=== PATIENT | female | born 1995 | race Caucasian/White ===

== ENCOUNTER 2016-10-25 10:24 | Day surgery (SDC) | payer BC, OTHER ==
[2016-10-24 13:12] VITALS: BMI 23.4
[2016-10-25 10:59] LABS: BASOPHIL 0.8 % (0-2.0); EOSINOPHIL 0.7 % (0-4.5); MCH 27.8 pg (25.7-33.7); MCHC 33.8 g/dl (32.0-36.0); MEAN CELL VOLUME 82.4 fl (80-96); MEAN PLT VOLUME 10.1 fl (7.5-11.1); NEUTROPHILS 71.6 % (42.8-82.8); PLATELET COUNT 239 K/MM3 (134-434); RDW 14.8 % (11.6-15.6); WHITE BLOOD COUNT 6.5 K/mm3 (4.0-10.0)
[2016-10-25 11:27] LABS: ALBUMIN 3.9 g/dl (3.4-5.0); ALK PHOS 59 U/L (45-117); BILIRUBIN,TOTAL 0.3 mg/dL (0.2-1.0); CALCIUM 9.2 mg/dL (8.5-10.1); CO2 27 mmol/L (21-32); CREATININE 0.5 mg/dL (0.55-1.02); GLUCOSE,RANDOM 102 mg/dL (74-106); SGOT/AST 13 U/L (15-37); SGPT/ALT 17 U/L (12-78); TOT PROT 7.5 g/dl (6.4-8.2)
[2016-10-25 12:17] LABS: ANION GAP 9 (8-16)
--- NOTE | 2016-10-25 12:49 | HP ---
History & Physical Update - History History: No Change - Physical Physical: No Change - Assessment Assessment: No Change - Plan Plan: No Change
[2016-10-25] MEDS ORDERED: PROPOFOL 20 ML ONE ×2 (12:51)
[2016-10-25] MEDS ORDERED: KETOROLAC TROMETHAMINE 30 MG/1 ML VIAL ONE (13:02)
[2016-10-25] MEDS ORDERED: ONDANSETRON 4 MG/2 ML VIAL IVPUSH PRN (13:15)
[2016-10-25] MEDS ORDERED: oxyCODONE HCL 5 MG TABLET PO PRN (13:15)
[2016-10-25] MEDS ORDERED: ACETAMINOPHEN 325 MG TABLET (FP) PO PRN (13:15)
[2016-10-25] MEDS ORDERED: LACTATED RINGERS SOLUTION 1,000 ML IV SCH (13:15)
--- NOTE | 2016-10-25 13:22 | OP ---
Operative Note - Note: Operative Date: 10/25/16 Pre-Operative Diagnosis: Missed Post-Operative Diagnosis: Same as Pre-op Surgeon: Poly Cedeno Anesthesia: General Operative Report Dictated: Yes
--- NOTE | 2016-10-25 13:40 | OP ---
DATE OF OPERATION: 10/25/2016 PREOPERATIVE DIAGNOSIS: Missed . OPERATION: Suction dilatation and curettage. POSTOPERATIVE DIAGNOSIS: Missed . SURGEON: Poly Cedeno MD ANESTHESIA: General. ESTIMATED BLOOD LOSS: 30 mL. DESCRIPTION OF PROCEDURE: Patient was taken to the operating room and placed in dorsal lithotomy position, prepped and draped in the usual sterile fashion. Speculum was placed in the vagina. Anterior lip of the cervix was grasped with a single-tooth tenaculum. Cervix then dilated to accommodate number-8 suction curette. Suction curettage was then performed. All contents were submitted to Pathology for chromosomal analysis. All instruments were then removed. Patient had tolerated the procedure well and was taken to the recovery room in stable condition. The estimated blood loss 30 mL. POLY CEDENO M.D. [id number]
[2016-10-25 14:41] VITALS: TEMP 98.8
[2016-10-25 17:25] VITALS: BP 124/60; PULSE 75
--- NOTE | 2016-10-26 13:35 | PATH ---
Surgical Pathology Report Patient Name: GENESIS MORRISSEY Med. Rec. #: [id number] /Age/Gender: 1995 (Age: 21) / F Account: [id number] Location: [facility] SURGICAL Taken: 10/25/2016 Received: 10/25/2016 Reported: 10/26/2016 Physicians: Poly Cedeno M.D. Specimen(s) Received PRODUCTS OF CONCEPTION Clinical History Missed Final Diagnosis UTERINE CONTENTS, EVACUATION: CHORIONIC VILLI CONSISTENT WITH PRODUCTS OF CONCEPTION. Comment: Chromosome analysis is pending, and a report will follow. Electronically Signed Darell Corral M.D. Gross Description Received fresh labeled "products of conception for chromosomal studies," is a 9.0 x 8.0 x 1.2 cm aggregate of banks-red soft tissue fragments admixed with blood clot. Villous tissue is identified. No definite somatic tissue is identified. A containers sales representative portion is placed in RPMI solution and sent for chromosomal analysis. An additional containers sales representative portion is submitted in one cassette. /10/25/2016 [facility]10/25/2016
== END 2016-10-25 17:00 | disposition home or self-care (01) ==
LOC: JASU-SURG 10:24
PROVIDERS: ATTEND Obstetrics & Gynecology
PROC: 10D17ZZ Extraction of Products of Conception, Retained, Via Natural or Artificial Opening (ICD-10-PCS; principal; 2016-10-25 11:30)
DX: O02.1 Missed abortion (principal)
CPT/HCPCS: 36415; 80053; 85025; 86850; 86870; 86900; 86901; 86902; 88305-TC; 94760

== ENCOUNTER 2017-10-29 16:10 | Inpatient (IN) | payer BC, OTHER ==
[2017-10-29] MEDS ORDERED: LACTATED RINGERS SOLUTION 500 ML IV SCH (16:45)
[2017-10-29] MEDS ORDERED: DEXTROSE 5%-LACTATED RINGERS 500 ML IV SCH (17:45)
[2017-10-29] MEDS ORDERED: ACETAMINOPHEN 325 MG TABLET (FP) ONE (19:05)
[2017-10-29] MEDS ORDERED: AMPICILLIN SODIUM 2 GM VIAL ONE (19:05)
[2017-10-29] MEDS ORDERED: AMPICILLIN - 2 GM in SODIUM CHLORIDE 100 ML IVPB ONE ×2 (19:15→22:15)
[2017-10-29] MEDS ORDERED: ACETAMINOPHEN 325 MG TABLET (FP) PO ONE (19:30)
[2017-10-29] MEDS ORDERED: DEXTROSE 5%-LACTATED RINGERS 1,000 ML IV SCH (19:45)
[2017-10-29 20:25] LABS: BASO % 0.3 % (0-2.0); EOS % 0.4 % (0-4.5); HEMATOCRIT 36.9 % (32.4-45.2); LYMPH % 18.6 % (8-40); MCH 26.1 pg (25.7-33.7); MCHC 32.6 g/dl (32.0-36.0); MEAN CELL VOLUME 80.1 fl (80-96); MEAN PLT VOLUME 11.6 fl (7.5-11.1); NEUT % 72.7 % (42.8-82.8); PLATELET COUNT 227 K/MM3 (134-434); RBC 4.61 M/mm3 (3.60-5.2); RDW 16.1 % (11.6-15.6); WHITE BLOOD COUNT 10.3 K/mm3 (4.0-10.0)
[2017-10-29 20:26] LABS: URINE APPEARANCE CLEAR; URINE BILIRUBIN NEGATIVE (<2.0 mg/dL); URINE COLOR STRAW; URINE GLUCOSE (UA) NEGATIVE (NEGATIVE); URINE KETONE NEGATIVE (NEGATIVE); URINE LEUK ESTERASE NEGATIVE (NEGATIVE); URINE NITRITE NEGATIVE (NEGATIVE); URINE PROTEIN NEGATIVE (NEGATIVE); URINE UROBILINOGEN NEGATIVE mg/dL (0.2-1.0)
[2017-10-29 21:18] LABS: ALBUMIN 2.9 g/dl (3.4-5.0); ALK PHOS 180 U/L (45-117); ANION GAP 12 (8-16); BILIRUBIN,TOTAL 0.3 mg/dL (0.2-1.0); BLOOD UREA NITROGEN 8 mg/dL (7-18); CALCIUM 9.2 mg/dL (8.5-10.1); CHLORIDE 103 mmol/L (98-107); CO2 24 mmol/L (21-32); CREATININE 0.4 mg/dL (0.55-1.02); GLUCOSE,RANDOM 65 mg/dL (74-106); POTASSIUM 4.1 mmol/L (3.5-5.1); SGOT/AST 18 U/L (15-37); SGPT/ALT 15 U/L (12-78); SODIUM 139 mmol/L (136-145); TOT PROT 6.7 g/dl (6.4-8.2)
[2017-10-29] MEDS ORDERED: MAGNESIUM 4GM/H20 - 4 GM/100 ML IVPB IVPB ONE (22:07)
[2017-10-29] MEDS ORDERED: MAGNESIUM SULFATE 20GM/500ML - 20 GM/500 ML INFUS.BAG ONE (22:07)
--- NOTE | 2017-10-29 22:08 | HP ---
Past Medical History - Primary Care Physician PCP:: Poly Cedeno - Admission Chief Complaint: labor 35.6 week. Breech Delivery History of Present Illness: 22 yo EDC 11/27/17 EgA 35 week with labor with breech presentation History Source: Patient Limitations to Obtaining History: No Limitations - Past Medical History ...: 3 ...Para: 0 ...Term: 0 ...: 0 ...Spon : 1 ...Induced : 1 ...LMP: 02/20/17 ... Weeks Gestation by Dates: 35.6 ...EDC by Dates: 11/27/17 ...EDC by Sono: 11/27/17 - Past Surgical History Past Surgical History: Yes: None Hx Myomectomy: No Hx Transabdominal Cerclage: No - Smoking History Smoking history: Never smoked Aproximately how many cigarettes per day: 0 - Alcohol/Substance Use Hx Alcohol Use: No Home Medications - Allergies Allergies/Adverse Reactions: Allergies Allergy/AdvReac Type Severity Reaction Status Date / Time benzoyl peroxide Allergy Severe "FACE Verified 10/29/17 16:39 SWELLING,ITCHY" clindamycin Allergy "FACE Verified 10/25/16 11:07 SWELLING, ITCHY" - Home Medications Home Medications: Ambulatory Orders Vit/Iron Fum/Folic AC [ Tablet] 1 each PO DAILY 10/24/16 Physical Exam - Maternity Vital Signs: Vital Signs Temperature 98.4 F 10/29/17 19:58 Pulse Rate 65 10/29/17 19:58 Respiratory Rate 19 10/29/17 19:58 Blood Pressure 132/77 10/29/17 19:58 O2 Sat by Pulse Oximetry (%) Constitutional: Yes: Well Nourished, No Distress Neck: Yes: WNL Cardiovascular: Yes: WNL, Regular Rate and Rhythm Lungs: Clear to auscultation Breast(s): Yes: WNL - Abdominal Exam/OB Fundal Height: 35 Number of Fetuses: Single Presentation: Vertex Contractions: Yes Regularity: Regular Intensity: Mild Monitor Mode: External Category: I Decelerations: None - Vaginal Exam/OB Dilatation (cm): closed Effacement (%): 50 % Amniotic Membrane Status: Intact Presentation: Vertex/Position Station: -2 - Physical Exam Musculoskeletal: Yes: WNL Extremities: Yes: WNL Edema: No - Labs Lab Results: CBC, BMP 10/29/17 19:30 10/29/17 19:30 Hemorrhage Risk Assessment - Risk Factors Risk Score: 0 Risk Level: Low Risk Problem List - Problems (1) labor in third trimester Code(s): O60.03 - LABOR WITHOUT DELIVERY, THIRD TRIMESTER (2) 35 weeks gestation of Code(s): Z3A.35 - 35 WEEKS GESTATION OF Assessment/Plan labor 35 week Breech presentation Plan Admit to LD Amp 2 gm MgSo4 4 gm bolus the 2gm/hr x 24 hours
[2017-10-29] MEDS ORDERED: MAGNESIUM 4GM/H20 - 4 GM/100 ML IVPB IVPB SCH (22:15)
[2017-10-29] MEDS ORDERED: ELECTROLYTE-148 SOLN 1,000 ML IV SCH (22:15)
[2017-10-29 23:10] LABS: INR 0.95 (0.82-1.09); PROTHROMBIN TIME (PATIENT) 10.7 SEC (9.7-13.0)
[2017-10-29 23:13] LABS: ACTIVATED PTT 24.6 SECONDS (25.2-36.5)
[2017-10-29] MEDS ORDERED: MAGNESIUM SULFATE 20GM/500ML - 20 GM/500 ML INFUS.BAG IVPB SCH (23:20)
[2017-10-29] MEDS ORDERED: LACTATED RINGERS SOLUTION 1,000 ML IV SCH (23:20)
[2017-10-29] MEDS: LACTATED RINGERS SOLUTION 1,000 ML IV SCH (23:20)
[2017-10-29] MEDS ORDERED: SODIUM CHLORIDE 1,000 ML IV SCH (23:20)
[2017-10-30 01:44] VITALS: BMI 27.0
[2017-10-30] MEDS ORDERED: AMPICILLIN SODIUM 1 GM VIAL ONE ×4 (04:08→21:59)
[2017-10-30] MEDS: AMPICILLIN - 1 GM in SODIUM CHLORIDE 100 ML IVPB SCH ×4 (04:15→22:03)
[2017-10-30] MEDS ORDERED: AMPICILLIN - 1 GM in SODIUM CHLORIDE 100 ML IVPB SCH (04:15)
[2017-10-30] MEDS: LACTATED RINGERS SOLUTION 1,000 ML IV SCH (06:25)
--- NOTE | 2017-10-30 07:57 | PN ---
Progress Note (SOAP) - Subjective Chief Complaint: Pt doing well - Current Medications Current Medications: Active Medications Sodium Chloride (Normal Saline -) 1,000 mls @ 25 mls/hr IV ASDIR NISSA Last Admin: 10/29/17 22:40 Dose: 25 mls/hr Lactated Ringer's (Lactated Ringers Solution) 1,000 mls @ 75 mls/hr IV ASDIR NISSA Last Admin: 10/30/17 06:25 Dose: 75 mls/hr Magnesium Sulfate (Magnesium Sulfate 20gm/500ml -) 20 gm in 500 mls @ 25 mls/ hr IVPB ASDIR NISSA; Protocol Last Admin: 10/29/17 23:20 Dose: 25 mls/hr Ampicillin Sodium 1 gm/ Sodium (Chloride) 100 mls @ 200 mls/hr IVPB Q6H [facility] Last Admin: 10/30/17 04:15 Dose: 200 mls/hr - Objective Vital Signs: Vital Signs Temperature 97.8 F 10/30/17 06:00 Pulse Rate 79 10/30/17 07:00 Respiratory Rate 20 10/30/17 07:00 Blood Pressure 118/68 10/30/17 07:00 O2 Sat by Pulse Oximetry (%) Constitutional: Yes: Well Nourished, No Distress Neck: Yes: WNL Cardiovascular: Yes: WNL, Regular Rate and Rhythm Respiratory: Yes: WNL Gastrointestinal: Yes: WNL, Normal Bowel Sounds, Soft Breast(s): Yes: WNL Musculoskeletal: Yes: WNL Extremities: Yes: WNL Edema: No Neurological: Yes: WNL, Alert, Oriented Labs Lab Results: CBC, BMP 10/29/17 19:30 10/29/17 19:30 Problem List - Problems (1) labor in third trimester Code(s): O60.03 - LABOR WITHOUT DELIVERY, THIRD TRIMESTER (2) 35 weeks gestation of Code(s): Z3A.35 - 35 WEEKS GESTATION OF Assessment/Plan labor 36 week Breech presentation Plan DC MgSO4 Transfer to when stable
[2017-10-30] MEDS ORDERED: BETAMET ACET/BETAMET NA PH 30 MG/5 ML VIAL ONE (08:35)
[2017-10-30] MEDS: BETAMET ACET/BETAMET NA PH 30 MG/5 ML VIAL IM SCH (08:45)
[2017-10-30] MEDS: PRENATAL VITAMINS W/ FOLIC ACID TABLET (FP) PO SCH (11:25)
[2017-10-30] MEDS ORDERED: SODIUM CHLORIDE 100 ML IVPB ONE ×2 (16:31→21:59)
[2017-10-31] MEDS ORDERED: SODIUM CHLORIDE 100 ML IVPB ONE (02:17)
[2017-10-31] MEDS ORDERED: AMPICILLIN SODIUM 1 GM VIAL ONE (02:17)
[2017-10-31] MEDS: AMPICILLIN - 1 GM in SODIUM CHLORIDE 100 ML IVPB SCH (03:45)
[2017-10-31] MEDS: BETAMET ACET/BETAMET NA PH 30 MG/5 ML VIAL IM SCH (08:55)
[2017-10-31] MEDS: PRENATAL VITAMINS W/ FOLIC ACID TABLET (FP) PO SCH (09:02)
[2017-10-31 14:26] VITALS: BP 120/61; PULSE 78; TEMP 98.2
== END 2017-10-31 15:55 | disposition home or self-care (01) | DRG 778 ==
LOC: JDEL 16:10 → JLDR 22:00 → J3W 10-30 10:30
PROVIDERS: ADMIT Obstetrics & Gynecology; ATTEND Obstetrics & Gynecology
DX: O60.03 Preterm labor without delivery, third trimester (principal); O32.1XX0 Maternal care for breech presentation, not applicable or unspecified; Z3A.35 35 weeks gestation of pregnancy
CPT/HCPCS: 36415; 80053; 81003; 83735; 85025; 85610; 85730; 86593; 86850; 86870; 86900; 86901; 86902; 87086; 96372; J7030

== ENCOUNTER 2017-11-20 08:00 | Inpatient (IN) | payer BC, OTHER ==
[2017-11-20] MEDS ORDERED: ELECTROLYTE-148 SOLN 1,000 ML IV ONE (10:15)
[2017-11-20] MEDS ORDERED: CITRIC ACID/SODIUM CITRATE 30 ML UNIT-DOSE CUP PO ONE (10:15)
[2017-11-20 10:50] VITALS: BMI 28.1
--- NOTE | 2017-11-20 11:06 | HP ---
Past Medical History - Admission Chief Complaint: Here for delivery History of Present Illness: 22 y/o P0 female here with [facility] at 39 weeks for scheduled delivery due to breech presentation. complicated by premature contractions at 36 weeks, pt received betamethasone. Also complicated by breech presentation. - Past Medical History Cardiovascular: No: AFIB, HTN Pulmonary: No: COPD Gastrointestinal: No: GERD Hepatobiliary: No: Hepatitis A, Hepatitis B Renal/: No: Renal Calculi, UTI ...: 3 ...Para: 0 ...Term: 0 ...: 0 ...Spon : 1 ...Induced : 1 ...Multiple Gestation: 0 ...LMP: 02/20/17 ... Weeks Gestation by Dates: 39.0 ...EDC by Dates: 11/27/17 ...EDC by Sono: 11/27/17 Heme/Onc: No: Anemia Infectious Disease: No: HIV, MRSA, STD's Psych: No: Anxiety, Bipolar, Depression - Past Surgical History Past Surgical History: Yes: None Hx Myomectomy: No Hx Transabdominal Cerclage: No - Smoking History Smoking history: Never smoked Have you smoked in the past 12 months: No Aproximately how many cigarettes per day: 0 - Alcohol/Substance Use Hx Alcohol Use: No - Social History ADL: Independent History of Recent Travel: No Home Medications - Allergies Allergies/Adverse Reactions: Allergies Allergy/AdvReac Type Severity Reaction Status Date / Time benzoyl peroxide Allergy Severe "FACE Verified 11/20/17 10:28 SWELLING,ITCHY" clindamycin Allergy "FACE Verified 11/20/17 10:28 SWELLING, ITCHY" - Home Medications Home Medications: Ambulatory Orders Vit/Iron Fum/Folic AC [ Tablet] 1 each PO DAILY 10/24/16 Review of Systems - Review of Systems Constitutional: reports: No Symptoms Eyes: reports: No Symptoms HENT: reports: No Symptoms Neck: reports: No Symptoms Cardiovascular: reports: No Symptoms Respiratory: reports: No Symptoms Gastrointestinal: reports: No Symptoms Genitourinary: reports: No Symptoms Breasts: reports: No Symptoms Reported Musculoskeletal: reports: No Symptoms Integumentary: reports: No Symptoms Neurological: reports: No Symptoms Endocrine: reports: No Symptoms Hematology/Lymphatic: reports: No Symptoms Psychiatric: reports: No Symptoms Physical Exam - Maternity Constitutional: Yes: Well Nourished, No Distress, Calm Eyes: Yes: Conjunctiva Clear, EOM Intact HENT: Yes: Atraumatic, Normocephalic Neck: Yes: Supple, Trachea Midline Lungs: Clear to auscultation - Abdominal Exam/OB Number of Fetuses: Single Presentation: Breech Category: I Accelerations: Uniform Decelerations: None - Vaginal Exam/OB Amniotic Membrane Status: Intact - Physical Exam Psychiatric: Yes: Alert, Oriented Hemorrhage Risk Assessment - Risk Factors Medium Risk Factors: Yes: None High Risk Factors: Yes: None Risk Score: 1 Risk Level: Medium Risk Problem List - Problems (1) Breech presentation of fetus Code(s): O32.1XX0 - MATERNAL CARE FOR BREECH PRESENTATION, UNSP Assessment/Plan for primary delivery NPO SCDs anesthesia and nursery aware
[2017-11-20] MEDS ORDERED: DEXTROSE 5%-LACTATED RINGERS 1,000 ML IV SCH (11:15)
[2017-11-20] MEDS ORDERED: ELECTROLYTE-148 SOLN 1,000 ML IV SCH (11:15)
[2017-11-20 11:33] LABS: INR 0.93 (0.82-1.09); PROTHROMBIN TIME (PATIENT) 10.5 SEC (9.7-13.0)
[2017-11-20 11:36] LABS: ACTIVATED PTT 25.3 SECONDS (25.2-36.5)
[2017-11-20] MEDS ORDERED: METHYLERGONOVINE MALEATE 0.2 MG/1 ML AMP IM PRN (12:20)
[2017-11-20] MEDS ORDERED: oxyCODONE HCL 5 MG TABLET PO PRN (12:20)
[2017-11-20] MEDS ORDERED: OXYTOCIN 20 UNITS in 0.9% NS 20 UNIT/1,000 ML INFUS.BAG IV ONE ×2 (12:23→13:50)
[2017-11-20] MEDS ORDERED: morphine SULFATE/Preservative Free 0.5 MG/ML (1cc Syringe) ONE (12:24)
[2017-11-20] MEDS ORDERED: ePHEDrine SULFATE 50 MG/1 ML AMPULE ONE (12:24)
[2017-11-20] MEDS ORDERED: BUPIVACAINE 0.75% IN DEXTROSE/PF 2ML AMPULE NR ONE (12:27)
[2017-11-20] MEDS ORDERED: ceFAZolin SODIUM 1 GM VIAL ONE (12:58)
--- NOTE | 2017-11-20 13:28 | OP ---
Operative Note - Note: Operative Date: 11/20/17 Pre-Operative Diagnosis: albina breech presentation Operation: primary delivery Findings: normal b/l tubes and ovaries albina breech presentation of fetus Surgeon: Ivory Ramirez Rack Carrier: Summer Alcantara Anesthesiologist/TELECOMMUNICATIONS PROJECT MANAGER: Brenda Gillis Anesthesia: Spinal Specimens Removed: placenta Estimated Blood Loss (mls): 500 Operative Report Dictated: Yes
[2017-11-20] MEDS: OXYTOCIN 20 UNITS in 0.9% NS 20 UNIT/1,000 ML INFUS.BAG IV SCH (13:50)
[2017-11-20] MEDS ORDERED: ONDANSETRON 4 MG/2 ML VIAL IVPUSH PRN (13:53)
--- NOTE | 2017-11-20 13:55 | OP ---
DATE OF OPERATION: 11/20/2017 PREOPERATIVE DIAGNOSIS: Albina breech presentation single intrauterine at 39 weeks. POSTOPERATIVE DIAGNOSIS: Albina breech presentation single intrauterine at 39 weeks. PROCEDURE: Primary low transverse delivery. SURGEON: Ivory Ramirez DO WINE SPECIALIST: SRUTHI Jacobson ESTIMATED BLOOD LOSS: 500 mL. ANESTHESIA: Spinal by Dr. Gillis COMPLICATIONS: None. SPECIMENS REMOVED: Placenta. Sponge, needle, and instrument count correct at the end of the case. DISPOSITION: Stable to PACU. BRIEF HISTORY AND PROCEDURE: The patient is a 22-year-old female who had been seen in the office for care and was noted to have albina breech presentation. The patient was counseled on her options, and she elected to undergo a primary delivery. The patient signed consents for the procedure upon admission on November 20, 2017. She was then taken back to the operating room and placed in the dorsal supine position after given spinal anesthesia by Dr. Gillis without difficulty. She was prepped and draped in the usual sterile fashion. A Angulo catheter was placed under sterile conditions. A hard time-out was then performed. A Pfannenstiel skin incision was created in the skin with a scalpel and carried to the underlying layer of rectus fascia sharply as well as bluntly. The fascia was incised on either side of the midline sharply and carried in a superolateral direction sharply. The fascia was then dissected off the underlying layer of rectus muscles bluntly and musculature was retracted laterally, and the peritoneum was entered bluntly and carefully dissected to allow for adequate room for delivery. A bladder blade was then inserted. Next, a low transverse incision on the uterus with created with a clean scalpel. This incision was extended in a superolateral direction bluntly. The was delivered from the albina breech presentation without difficulty. First the hips were elevated, and with minimal pressure from above, the hips and lower extremities were delivered without difficulty. Bilateral arms then delivered in an anterior sleeping flexed fashion bilaterally without difficulty, and the head was delivered in a flexed position. The cord was clamped twice and cut in between. The infant was then taken to the warmer to be assessed by Neonatology staff where scores were assigned. Placenta was noted to have a 3-vessel cord. This was delivered manually, and it was intact. The uterus was exteriorized from the abdomen, inspected, and cleared of all amniotic membrane and debris with a dry lap sponge. The hysterotomy was reapproximated in a double-layer closure using 1 Vicryl first, second with a 0 Biosyn suture both running, locked layers. Bilateral tubes and ovaries were noted to be normal. The posterior cul-de-sac was suctioned and cleared of all blood clot and debris. The uterus was placed back in the abdomen. Bilateral gutters were inspected and cleared of all amniotic membrane and debris. The peritoneum was reapproximated using 2-0 chromic in a running fashion. The musculature was reapproximated with a single mattress suture using 2-0 chromic suture. The fascia was reapproximated using 1 Vicryl in a running fashion. The subcutaneous tissue was irrigated and reapproximated in a running fashion, and the skin was reapproximated in a subcuticular fashion. Steri-Strips were then applied. The patient tolerated the procedure well and is recovering in stable condition in the labor and delivery recovery area after the procedure. IVORY RAMIREZ DO /[id number]
--- NOTE | 2017-11-20 15:52 | SURG ---
Surgery Press Operator [employer] Note Press Operator [employer]: Summer Alcantara PA-C Date of Service: 11/20/17 Diagnosis: albina breech presentation Procedure: primary delivery I was present for the entirety of the operative procedure. For further detail, please refer to operative report. Visit type - Case Type Case Type: Scheduled - Emergency Emergency Visit: No - New patient This patient is new to me today: Yes Date on this admission: 11/20/17
[2017-11-20] MEDS: IBUPROFEN 800 MG/8 ML IJ IVPB PRN (18:35)
[2017-11-21] MEDS: IBUPROFEN 800 MG/8 ML IJ IVPB PRN (04:05)
[2017-11-21] MEDS: OXYTOCIN 20 UNITS in 0.9% NS 20 UNIT/1,000 ML INFUS.BAG IV SCH (06:04)
--- NOTE | 2017-11-21 06:17 | PN ---
Post Progress Note - Subjective Subjective: Pt seen/evaluated and doing well. Pain controlled with medication. Not yet OOB. Denies CP/SOB/F/C/ALMEIDA. Mackey draining clear yellow urine. Tolerating clear diet. Type of Delivery: Primary C/S Vital Signs: Vital Signs Temperature 98.6 F 11/21/17 06:00 Pulse Rate 59 L 11/21/17 06:00 Respiratory Rate 18 11/21/17 06:00 Blood Pressure 120/59 11/21/17 06:00 O2 Sat by Pulse Oximetry (%) 100 11/20/17 15:20 Uterus: Yes: Fundus Firm Incision: Yes: Dressing dry and intact Abdomen/GI: Yes: Abdomen soft, Tolerating PO (clear diet). No: Passing flatus Lochia: Yes: Rubra Lochia, amount: Moderate Extremities: Yes: Calves non-tender Perineum: Yes: Intact Problem List - Problems (1) Breech presentation of fetus Code(s): O32.1XX0 - MATERNAL CARE FOR BREECH PRESENTATION, UNSP (2) delivery delivered Code(s): O82 - ENCOUNTER FOR DELIVERY WITHOUT INDICATION Assessment/Plan POD#1 s/p primary delivery for breech presentation AFVSS CBC pending advance diet as tolerated d/c mackey today encourage ambulation
[2017-11-21 08:11] LABS: BASO % 0.6 % (0-2.0); EOS % 0.9 % (0-4.5); HEMATOCRIT 33.5 % (32.4-45.2); HEMOGLOBIN 11.1 GM/dL (10.7-15.3); MCH 26.8 pg (25.7-33.7); MEAN CELL VOLUME 81.3 fl (80-96); MEAN PLT VOLUME 11.1 fl (7.5-11.1); MONO % 5.8 % (3.8-10.2); NEUT % 77.7 % (42.8-82.8); PLATELET COUNT 143 K/MM3 (134-434); RBC 4.12 M/mm3 (3.60-5.2); RDW 17.7 % (11.6-15.6); WHITE BLOOD COUNT 9.6 K/mm3 (4.0-10.0)
[2017-11-21] MEDS: ACETAMINOPHEN 325 MG TABLET (FP) PO PRN ×2 (08:25→12:30)
[2017-11-21] MEDS: SIMETHICONE 80 MG TAB.CHEW (FP) PO PRN ×2 (08:27→23:44)
[2017-11-21] MEDS: IBUPROFEN 600 MG TABLET (FP) PO PRN ×4 (08:27→23:44)
--- NOTE | 2017-11-21 08:59 | PN ---
Progress Note, Physician Chief Complaint: s/p c section under spinal anesthesia History of Present Illness: post op day one with duramorph for post op pain - Current Medication List Current Medications: Active Medications Acetaminophen (Tylenol -) 650 mg PO Q4H PRN PRN Reason: FEVER Last Admin: 11/21/17 08:25 Dose: 650 mg Bisacodyl (Dulcolax Suppository -) 10 mg RC PRN PRN PRN Reason: CONSTIPATION Diphenhydramine HCl (Benadryl Injection -) 25 mg IVPUSH Q4H PRN PRN Reason: Pruritis Parenteral Electrolytes (Plasma-Lyte 148 -) 1,000 mls @ 125 mls/hr IV ASDIR NISSA Last Admin: 11/20/17 11:48 Dose: 125 mls/hr Dextrose/Lactated Ringer's (D5-Lr -) 1,000 mls @ 125 mls/hr IV ASDIR NISSA Oxytocin/Sodium Chloride (Normal Saline+20 Units Oxytocin -) 20 unit in 1,000 mls @ 125 mls/hr IV ASDIR [facility] Last Admin: 11/21/17 06:04 Dose: 125 mls/hr Ibuprofen (Motrin -) 600 mg PO Q4H PRN PRN Reason: PAIN LEVEL 1 - 3 Last Admin: 11/21/17 08:27 Dose: 600 mg Ibuprofen (Caldolor Injection -) 800 mg IVPB Q8H PRN PRN Reason: PAIN LEVEL 6-10 Last Admin: 11/21/17 04:05 Dose: 800 mg Methylergonovine Maleate (Methergine Injection -) 0.2 mg IM Q4H PRN PRN Reason: Excessive Bleeding (L&D) Ondansetron HCl (Zofran Injection) 4 mg IVPUSH Q4H PRN PRN Reason: NAUSEA Oxycodone HCl (Roxicodone -) 5 mg PO Q4H PRN PRN Reason: PAIN LEVEL 4 - 6 Oxycodone HCl (Roxicodone -) 10 mg PO Q4H PRN PRN Reason: PAIN LEVEL 7 - 10 Multivit/Folic Acid/Iron ( Vitamins (Sjr) -) 1 tab PO DAILY [facility] Simethicone (Mylicon -) 80 mg PO Q4H PRN PRN Reason: GAS Last Admin: 11/21/17 08:27 Dose: 80 mg - Objective Vital Signs: Vital Signs Temperature 98.6 F 11/21/17 06:00 Pulse Rate 59 L 11/21/17 06:00 Respiratory Rate 18 11/21/17 06:00 Blood Pressure 120/59 11/21/17 06:00 O2 Sat by Pulse Oximetry (%) 100 11/20/17 15:20 Constitutional: Yes: Well Nourished Cardiovascular: Yes: WNL Respiratory: Yes: WNL Gastrointestinal: Yes: WNL Labs: CBC, BMP 11/21/17 06:15 INR, PTT INR 0.93 (0.82-1.09) 11/20/17 10:45 Assessment/Plan No adverse effects, pain controlled, no headache, nause aor vomiting. Dept of anesthesia will sign off care at this time.
[2017-11-21] MEDS: PRENATAL VITAMINS W/ FOLIC ACID TABLET (FP) PO SCH (09:49)
[2017-11-21] MEDS ORDERED: BISACODYL 10 MG SUPP.RECT RC PRN (12:20)
[2017-11-21] MEDS: oxyCODONE HCL 5 MG TABLET PO PRN ×3 (14:24→23:45)
[2017-11-22] MEDS: PRENATAL VITAMINS W/ FOLIC ACID TABLET (FP) PO SCH (10:38)
[2017-11-22] MEDS: IBUPROFEN 600 MG TABLET (FP) PO PRN ×3 (10:40→21:44)
[2017-11-22] MEDS: ACETAMINOPHEN 325 MG TABLET (FP) PO PRN ×2 (10:41→21:44)
--- NOTE | 2017-11-22 12:36 | PN ---
Post Progress Note - Subjective Subjective: Pt seen/evaluated and doing well. Pain controlled, tolerating diet, ambulating , voiding and passing flatus. VB minimal. Type of Delivery: Primary C/S Vital Signs: Vital Signs Temperature 98.6 F 11/22/17 08:51 Pulse Rate 73 11/22/17 08:51 Respiratory Rate 20 11/22/17 08:51 Blood Pressure 145/87 11/22/17 08:51 O2 Sat by Pulse Oximetry (%) 100 11/20/17 15:20 Uterus: Yes: Fundus Firm Incision: Yes: Sutures intact Abdomen/GI: Yes: Abdomen soft, Passing flatus, Tolerating PO. No: Tender Lochia: Yes: Rubra Lochia, amount: Small Extremities: Yes: Calves non-tender Perineum: Yes: Intact Activity: Ambulating - Labs Labs: CBC WBC 9.6 K/mm3 (4.0-10.0) 11/21/17 06:15 RBC 4.12 M/mm3 (3.60-5.2) 11/21/17 06:15 Hgb 11.1 GM/dL (10.7-15.3) 11/21/17 06:15 Hct 33.5 % (32.4-45.2) 11/21/17 06:15 MCV 81.3 fl (80-96) 11/21/17 06:15 MCH 26.8 pg (25.7-33.7) 11/21/17 06:15 MCHC 33.0 g/dl (32.0-36.0) 11/21/17 06:15 RDW 17.7 % (11.6-15.6) H 11/21/17 06:15 Plt Count 143 K/MM3 (134-434) D 11/21/17 06:15 MPV 11.1 fl (7.5-11.1) 11/21/17 06:15 Absolute Neuts (auto) 7.4 # 11/21/17 06:15 Neutrophils % 77.7 % (42.8-82.8) 11/21/17 06:15 Lymphocytes % 15.0 % (8-40) D 11/21/17 06:15 Monocytes % 5.8 % (3.8-10.2) 11/21/17 06:15 Eosinophils % 0.9 % (0-4.5) 11/21/17 06:15 Basophils % 0.6 % (0-2.0) 11/21/17 06:15 Nucleated RBC % 0 % (0-0) 11/21/17 06:15 Problem List - Problems (1) Breech presentation of fetus Code(s): O32.1XX0 - MATERNAL CARE FOR BREECH PRESENTATION, UNSP (2) delivery delivered Code(s): O82 - ENCOUNTER FOR DELIVERY WITHOUT INDICATION (3) delivery delivered Code(s): O82 - ENCOUNTER FOR DELIVERY WITHOUT INDICATION Assessment/Plan POD#2 s/p primary delivery for breech presentation AFVSS Hgb 11.1 Regular diet encourage ambulation routine post op care
--- NOTE | 2017-11-22 12:49 | PATH ---
Surgical Pathology Report Patient Name: GENESIS MORRISSEY Med. Rec. #: [id number] /Age/Gender: 1995 (Age: 22) / F Account: [id number] Location: [facility] OBS/SOLAR ENERGY INSTALLATION MANAGER Taken: 11/20/2017 Received: 11/21/2017 Reported: 11/22/2017 Physicians: Ivory Ramirez M.D. Specimen(s) Received PLACENTA Clinical History , 39 weeks breech presentation Final Diagnosis PLACENTA, SECTION: 398 g THIRD TRIMESTER PLACENTA WITH TRIVASCULAR UMBILICAL CORD AND UNREMARKABLE PLACENTAL MEMBRANES. Electronically Signed Ro Lo M.D. Gross Description The specimen is received fresh labeled placenta and is a 398 gram, 19.0 x 17.0 x 2.0 cm. placenta with attached membranes and umbilical cord. The attached membranes are banks, translucent with focal opacities and insert marginally. The umbilical cord measures 32 cm. in length and averages 1 cm. in diameter. The cord inserts eccentrically, 6 cm. to the nearest margin. No true knots or strictures are identified. Cut surface of the umbilical cord reveals 3 vessels. The surface is coyne-blue with minimal fibrin deposition and appropriate caliber vessels. The maternal surface is red-brown with focal defects. Sectioning reveals a red-brown, spongy parenchyma. No lesions are identified. Explosives Engineer sections are submitted in three cassettes as follows: 1- membrane rolls and umbilical cord; 2-3- full thickness sections of placenta. /11/21/2017 [place]/11/21/2017
[2017-11-22] MEDS: oxyCODONE HCL 5 MG TABLET PO PRN ×2 (17:18→21:43)
[2017-11-22] MEDS: SIMETHICONE 80 MG TAB.CHEW (FP) PO PRN ×2 (17:20→21:43)
[2017-11-22] MEDS ORDERED: SENNOSIDES/DOCUSATE COMBO (SENNA PLUS) TABLET (UD) PO PRN (21:42)
[2017-11-23 07:52] LABS: BASO % 0.4 % (0-2.0); EOS % 2.5 % (0-4.5); HEMATOCRIT 31.7 % (32.4-45.2); HEMOGLOBIN 10.7 GM/dL (10.7-15.3); LYMPH % 24.5 % (8-40); MCH 27.2 pg (25.7-33.7); MCHC 33.8 g/dl (32.0-36.0); MEAN CELL VOLUME 80.4 fl (80-96); MEAN PLT VOLUME 10.1 fl (7.5-11.1); MONO % 8.1 % (3.8-10.2); NEUT % 64.5 % (42.8-82.8); PLATELET COUNT 184 K/MM3 (134-434); RBC 3.94 M/mm3 (3.60-5.2); RDW 17.6 % (11.6-15.6); WHITE BLOOD COUNT 8.3 K/mm3 (4.0-10.0)
--- NOTE | 2017-11-23 09:46 | PN ---
Progress Note (SOAP) - Subjective Chief Complaint: Pt doing well - Current Medications Current Medications: Active Medications Acetaminophen (Tylenol -) 650 mg PO Q4H PRN PRN Reason: FEVER Last Admin: 11/22/17 21:44 Dose: 650 mg Bisacodyl (Dulcolax Suppository -) 10 mg RC PRN PRN PRN Reason: CONSTIPATION Diphenhydramine HCl (Benadryl Injection -) 25 mg IVPUSH Q4H PRN PRN Reason: Pruritis Parenteral Electrolytes (Plasma-Lyte 148 -) 1,000 mls @ 125 mls/hr IV ASDIR [facility] Last Admin: 11/20/17 11:48 Dose: 125 mls/hr Dextrose/Lactated Ringer's (D5-Lr -) 1,000 mls @ 125 mls/hr IV ASDIR [facility] Oxytocin/Sodium Chloride (Normal Saline+20 Units Oxytocin -) 20 unit in 1,000 mls @ 125 mls/hr IV ASDIR [facility] Last Admin: 11/21/17 06:04 Dose: 125 mls/hr Ibuprofen (Motrin -) 600 mg PO Q4H PRN PRN Reason: PAIN LEVEL 1 - 3 Last Admin: 11/22/17 21:44 Dose: 600 mg Ibuprofen (Caldolor Injection -) 800 mg IVPB Q8H PRN PRN Reason: PAIN LEVEL 6-10 Last Admin: 11/21/17 04:05 Dose: 800 mg Methylergonovine Maleate (Methergine Injection -) 0.2 mg IM Q4H PRN PRN Reason: Excessive Bleeding (L&D) Ondansetron HCl (Zofran Injection) 4 mg IVPUSH Q4H PRN PRN Reason: NAUSEA Oxycodone HCl (Roxicodone -) 5 mg PO Q4H PRN PRN Reason: PAIN LEVEL 4 - 6 Last Admin: 11/22/17 21:43 Dose: 5 mg Oxycodone HCl (Roxicodone -) 10 mg PO Q4H PRN PRN Reason: PAIN LEVEL 7 - 10 Multivit/Folic Acid/Iron ( Vitamins (Sjr) -) 1 tab PO DAILY [facility] Last Admin: 11/22/17 10:38 Dose: 1 tab Senna/Docusate Sodium (Pericolace -) 2 tablet PO HS PRN PRN Reason: INSOMNIA Last Admin: 11/22/17 22:03 Dose: 2 tablet Simethicone (Mylicon -) 80 mg PO Q4H PRN PRN Reason: GAS Last Admin: 11/22/17 21:43 Dose: 80 mg - Objective Vital Signs: Vital Signs Temperature 98.1 F 11/22/17 22:00 Pulse Rate 74 11/22/17 22:00 Respiratory Rate 18 11/22/17 22:00 Blood Pressure 137/89 11/22/17 22:00 O2 Sat by Pulse Oximetry (%) 100 11/20/17 15:20 Constitutional: Yes: Well Nourished, No Distress Cardiovascular: Yes: WNL, Regular Rate and Rhythm Respiratory: Yes: WNL Gastrointestinal: Yes: WNL, Normal Bowel Sounds, Soft ....Post : Yes: Uterus firm, Uterus non-tender Breast(s): Yes: WNL Musculoskeletal: Yes: WNL Extremities: Yes: WNL Labs Lab Results: CBC, BMP 11/23/17 07:00 Problem List - Problems (1) delivery delivered Code(s): O82 - ENCOUNTER FOR DELIVERY WITHOUT INDICATION Assessment/Plan POD 3 stable Plan oob
[2017-11-23] MEDS: PRENATAL VITAMINS W/ FOLIC ACID TABLET (FP) PO SCH (09:48)
--- NOTE | 2017-11-23 09:52 | DS ---
Physical Exam-[employer] Vital Signs: Vital Signs Temperature 98.1 F 11/22/17 22:00 Pulse Rate 74 11/22/17 22:00 Respiratory Rate 18 11/22/17 22:00 Blood Pressure 137/89 11/22/17 22:00 O2 Sat by Pulse Oximetry (%) 100 11/20/17 15:20 Constitutional: Yes: Well Nourished, No Distress Gastrointestinal: Yes: WNL ...Rectal Exam: Yes: WNL Renal/: Yes: WNL Pelvis: Yes: WNL ....Post : Yes: Uterus firm, Uterus non-tender Wound/Incision: Yes: Clean/Dry, Well Approximated, Open to air Neurological: Yes: WNL, Alert, Oriented Labs: CBC, BMP 11/23/17 07:00 Delivery - Delivery Section: Low Flap Transverse Type of Anesthesia: Spinal EBL (cc): 500 Delivery, Single - Stages of Labor Date of Delivery: 11/20/17 Time of Delivery: 13:08 Time Placenta Delivered: 13:09 - Condition of Vp Marketing/Phone Specialist Present: Yes Name: Becky Galaviz Infant Gender: Male Weight: 6 lb 7 oz Total Hours ROM (Hrs/Mins): 0/2 - 1 Minute Total Score: 9 5 Minutes Total Score: 9 - Feeding Plan Initial Plan: Elected not to breastfeed exclusively throughout hospitalization Discharge Summary Reason For Visit: Current Active Problems Breech presentation of fetus (Acute) Breech presentation of fetus (Acute) delivery delivered (Acute) delivery delivered (Acute) Procedures: Principal: Cesrean Section Condition: Good - Instructions Diet, Activity, Other Instructions: Physical activity Resume your normal everyday activity as tolerated no heavy lifting or exercise until seen by your surgeon. You may walk unlimited jo of and climb stairs. You may resume driving the car when you feel safe and comfortable behind the wheel. No sexual activity as instructed. Wound care If you have a bandage, leave it on, and keep dry for 48-72 hours. After that time discard the outer bandage. If they are tapes on the skin under the out of bandage leave them in place. They will peel off in the next 7 to 10 days. Do Not Peel them off. You may shower the day after surgery. If there are tapes present on the skin, you may shower over them. Diet There are no dietary restrictions. Eat healthy, high-fiber foods. Drink 6 to 8 glasses of liquid each day. This will assist in keeping your bowels are regular. Pain management You may take Tylenol or acetaminophen or Ibuprofen (for example, Motrin, Advil etc.) from my pain prescription medication is ordered should be taken as prescribed for moderate to severe pain. Call MD for any of the following: Severe pain not relieved by medication Fever of 101 or higher Excessive bleeding or drainage on dressing Inability to urinate Disposition: HOME - Home Medications Comprehensive Discharge Medication List: Ambulatory Orders Vit/Iron Fum/Folic AC [ Tablet] 1 each PO DAILY 10/24/16 Ibuprofen 600 mg PO QID PRN #30 tablet 11/23/17 Oxycodone HCl/Acetaminophen [Percocet 5-325 mg Tablet] 1 - 2 tab PO Q6H #20 tab MDD 6 11/23/17
[2017-11-23 10:10] VITALS: BP 132/94; PULSE 105; TEMP 97.9
[2017-11-23] MEDS: ACETAMINOPHEN 325 MG TABLET (FP) PO PRN (13:35)
[2017-11-23] MEDS: SIMETHICONE 80 MG TAB.CHEW (FP) PO PRN (13:35)
[2017-11-23] MEDS: IBUPROFEN 600 MG TABLET (FP) PO PRN (13:36)
== END 2017-11-23 17:00 | disposition home or self-care (01) | DRG 766 ==
LOC: JLDR 10:15 → J3W 16:00
PROVIDERS: ADMIT Obstetrics & Gynecology; ATTEND Obstetrics & Gynecology
PROC: 10D00Z1 Extraction of Products of Conception, Low, Open Approach (ICD-10-PCS; principal; 2017-11-20)
DX: O32.1XX0 Maternal care for breech presentation, not applicable or unspecified (principal); Z3A.39 39 weeks gestation of pregnancy; Z37.0 Single live birth
CPT/HCPCS: 36415; 85025; 85610; 85730; 88307-TC

== ENCOUNTER 2019-02-06 12:20 | Emergency (ER) | payer BC, OTHER ==
[2019-02-06 12:37] VITALS: BP 133/74; PULSE 84; TEMP 98.2; BMI 23.4
[2019-02-06 13:35] LABS: BASO % 0.9 % (0-2.0); EOS % 0.7 % (0-4.5); HEMATOCRIT 39.9 % (32.4-45.2); LYMPH % 15.2 % (8-40); MCH 27.7 pg (25.7-33.7); MCHC 32.6 g/dl (32.0-36.0); MEAN CELL VOLUME 84.7 fl (80-96); MEAN PLT VOLUME 10.5 fl (7.5-11.1); MONO % 6.3 % (3.8-10.2); NEUT % 76.9 % (42.8-82.8); PLATELET COUNT 229 K/MM3 (134-434); RBC 4.71 M/mm3 (3.60-5.2); RDW 14.4 % (11.6-15.6); WHITE BLOOD COUNT 7.9 K/mm3 (4.0-10.0)
[2019-02-06 13:46] LABS: PH,URINE 7.5 (5.0-8.0); URINE APPEARANCE TURBID; URINE BILIRUBIN NEGATIVE (NEGATIVE); URINE COLOR YELLOW; URINE GLUCOSE (UA) NEGATIVE (NEGATIVE); URINE KETONE NEGATIVE (NEGATIVE); URINE LEUK ESTERASE NEGATIVE (NEGATIVE); URINE NITRITE NEGATIVE (NEGATIVE); URINE PROTEIN NEGATIVE (NEGATIVE)
--- NOTE | 2019-02-06 13:49 | PDOC ---
History of Present Illness <Dewayne Mejía - Last Filed: 02/06/19 13:59> - General History Source: Patient Exam Limitations: No Limitations - History of Present Illness Initial Comments: 02/06/19 13:46 23 yo F 15 weeks comes in c/o 1 week of diffuse lower back and lower abdominal pain. Pain was very bad last night and felt like contractions. Also felt like her pants were wet yesterday (unsure from what, does not know if her water broke). Pt went to her OB on Saturday, had a sono done which was normal but as told that if the pain worsens, she needs to come to the ER immediately. She had premature labor at 36 weeks for her previous , hence the concern. No other complaints today, no fever/chills, no NVD, no change in appetite, no urinary symptoms. <Heidi Dawn - Last Filed: 02/06/19 16:44> - General Chief Complaint: Pain Stated Complaint: 15 WKS PRG CRAMPS Time Seen by Provider: 02/06/19 12:40 Past History <Dewayne Mejía - Last Filed: 02/06/19 13:59> - Past Medical History Asthma: Yes (mild asthma as per pt - no meds) Cancer: No Cardiac Disorders: No COPD: No Diabetes: No HTN: No Seizures: No Thyroid Disease: No - Reproductive History Is Patient Now?: Yes (14 weeks) (#): 3 Para: 1 - Immunization History Immunization Up to Date: Yes - Psycho Social/Smoking Cessation Hx Smoking Status: No Smoking History: Never smoked Have you smoked in the past 12 months: No Number of Cigarettes Smoked Daily: 0 Information on smoking cessation initiated: No Hx Alcohol Use: No Drug/Substance Use Hx: No Substance Use Type: None Hx Substance Use Treatment: No <Heidi Dawn - Last Filed: 02/06/19 16:44> - Past Medical History Allergies/Adverse Reactions: Allergies Allergy/AdvReac Type Severity Reaction Status Date / Time benzoyl peroxide Allergy Severe "FACE Verified 02/06/19 12:34 SWELLING,ITCHY" clindamycin Allergy "FACE Verified 02/06/19 12:34 SWELLING, ITCHY" Home Medications: Ambulatory Orders Vit/Iron Fum/Folic AC [ Tablet] 1 each PO DAILY 10/24/16 Ibuprofen 600 mg PO QID PRN #30 tablet 11/23/17 Oxycodone HCl/Acetaminophen [Percocet 5-325 mg Tablet] 1 - 2 tab PO Q6H #20 tab MDD 6 11/23/17 Review of Systems - Review of Systems Able to Perform ROS?: Yes Constitutional: No: Chills, Fever, Malaise, Night Sweats HEENTM: No: Eye Pain, Recent change in vision, Throat Pain Respiratory: No: Cough, Shortness of Breath Cardiac (ROS): No: Chest Pain, Palpitations, Chest Tightness ABD/GI: Yes: Abdominal cramping. No: Diarrhea, Nausea, Vomiting : No: Dysuria, Hematuria Musculoskeletal: Yes: Back Pain Integumentary: No: Rash Neurological: No: Headache, Numbness, Dizziness Psychiatric: No: Change in Appetite Endocrine: No: Unexplained Weight Loss <Heidi Dawn - Last Filed: 02/06/19 16:44> *Physical Exam - Vital Signs Last Vital Signs Temp Pulse Resp BP Pulse Ox 98.2 F 84 17 133/74 100 02/06/19 12:35 02/06/19 12:35 02/06/19 12:35 02/06/19 12:35 02/06/19 12:35 <Dewayne Mejía - Last Filed: 02/06/19 13:59> - Vital Signs Last Vital Signs Temp Pulse Resp BP Pulse Ox 98.2 F 84 17 133/74 100 02/06/19 12:35 02/06/19 12:35 02/06/19 12:35 02/06/19 12:35 02/06/19 12:35 - Physical Exam General Appearance: Yes: Nourished. No: Apparent Distress HEENT: positive: TYREE, Normal ENT Inspection, Normal Voice. negative: Pale Conjunctivae, Scleral Icterus (R), Scleral Icterus (L) Neck: positive: Supple. negative: Decreased range of motion, Tender midline Respiratory/Chest: positive: Lungs Clear, Normal Breath Sounds. negative: Respiratory Distress, Accessory Muscle Use Cardiovascular: positive: Regular Rhythm, Regular Rate Gastrointestinal/Abdominal: positive: Normal Bowel Sounds, Soft, Other (gravud) . negative: Tender Musculoskeletal: positive: Normal Inspection. negative: CVA Tenderness, Decreased Range of Motion Extremity: positive: Normal Capillary Refill, Normal Inspection, Normal Range of Motion. negative: Tender, Pedal Edema Integumentary: positive: Normal Color, Dry. negative: Jaundice, Rash Neurologic: positive: Fully Oriented, Alert, Normal Mood/Affect <Heidi Dawn - Last Filed: 02/06/19 16:44> ED Treatment Course - LABORATORY CBC & Chemistry Diagram: 02/06/19 13:24 02/06/19 13:24 - ADDITIONAL ORDERS Additional order review: Laboratory Results 02/06/19 13:24 Urine Color Yellow Urine Appearance Turbid Urine pH 7.5 Ur Specific [place] 1.020 Urine Protein Negative Urine Glucose (UA) Negative Urine Ketones Negative Urine Blood Negative Urine Nitrite Negative Urine Bilirubin Negative Urine Urobilinogen 1.0 Ur Leukocyte Esterase Negative 02/06/19 13:24 RBC 4.71 MCV 84.7 MCHC 32.6 RDW 14.4 D MPV 10.5 Neutrophils % 76.9 Lymphocytes % 15.2 D Monocytes % 6.3 Eosinophils % 0.7 Basophils % 0.9 <Dewayne Mejía - Last Filed: 02/06/19 13:59> - LABORATORY CBC & Chemistry Diagram: 02/06/19 13:24 02/06/19 13:24 - RADIOLOGY Radiology Studies Ordered: Category Date Time Status TRANSVAGINAL US PREG [US] Stat Ultrasound 02/06/19 12:50 Ordered <Heidi Dawn - Last Filed: 02/06/19 16:44> Medical Decision Making - Medical Decision Making 02/06/19 13:59 The patient was seen and evaluated in conjunction with SRUTHI Dawn under my direct supervision, ancillary studies were reviewed. I agree with the plan as outlined by SURTHI Dawn. <Dewayne Mejía - Last Filed: 02/06/19 13:59> - Medical Decision Making 02/06/19 13:49 23 yo 15 weeks F w/ lower abdominal/low back tesfaye for the past week. Also found "her pants wet". Unsure if her water broke. Will check labs, sono and reassess 02/06/19 13:50 02/06/19 14:36 Sono with adequate amount of aniotic fluid. (+)live IUP with HR 154. WIll discharge with OB follow up.Pt will stop by the office now to make an appointment. Return for worsening/concerning symptoms. Pt verbalizes understanding and agrees with plan. <Heidi Dawn - Last Filed: 02/06/19 16:44> Discharge <Dewayne Mejía - Last Filed: 02/06/19 13:59> - Discharge Information Problems reviewed: Yes <Heidi Dawn - Last Filed: 02/06/19 16:44> - Discharge Information Clinical Impression/Diagnosis: Abdominal pain affecting Condition: Stable Disposition: HOME - Patient Discharge Instructions Patient Printed Discharge Instructions: DI for Abdominal Pain -- Early Additional Instructions: Return for worsening/concerning symptoms.
[2019-02-06 14:01] LABS: ALBUMIN 3.8 g/dl (3.4-5.0); BILIRUBIN,TOTAL 0.3 mg/dL (0.2-1); BLOOD UREA NITROGEN 6.5 mg/dL (7-18); CALCIUM 9.1 mg/dL (8.5-10.1); CREATININE 0.5 mg/dL (0.55-1.3); POTASSIUM 3.9 mmol/L (3.5-5.1); TOT PROT 7.5 g/dl (6.4-8.2)
== END 2019-02-06 14:50 | disposition home or self-care (01) ==
LOC: JER 12:20
DX: O26.892 Other specified pregnancy related conditions, second trimester (principal); R10.30 Lower abdominal pain, unspecified; Z3A.15 15 weeks gestation of pregnancy; Z88.0 Allergy status to penicillin; Z88.8 Allergy status to other drugs, medicaments and biological substances
CPT/HCPCS: 36415; 76815-TC; 80053; 81003; 83690; 84702; 85025; 87086; 99282-25

== ENCOUNTER 2020-12-31 10:08 | Emergency (ER) | payer BC, OTHER ==
[2020-12-31 10:29] VITALS: BP 113/78; PULSE 82; TEMP 97.7; BMI 24.5
[2020-12-31] MEDS ORDERED: KETOROLAC TROMETHAMINE 60 MG/2 ML VIAL IM ONE (11:01)
[2020-12-31] MEDS ORDERED: KETOROLAC TROMETHAMINE 30 MG/1 ML VIAL ONE (11:16)
[2020-12-31] MEDS ORDERED: ONDANSETRON *ODT* 4 MG TABLET SL ONE (11:30)
[2020-12-31] MEDS ORDERED: ONDANSETRON *ODT* 4 MG TABLET ONE (11:39)
[2020-12-31 13:01] LABS: EPI CELLS 13 /uL (0-25.1); HYALINE CASTS 5 /uL (0-3.1); PH,URINE 5.5 (5.0-8.0); URINE APPEARANCE CLEAR; URINE BACTERIA 62 /uL (0-1359); URINE BILIRUBIN NEGATIVE (NEGATIVE); URINE COLOR YELLOW; URINE GLUCOSE (UA) NEGATIVE (NEGATIVE); URINE KETONE NEGATIVE (NEGATIVE); URINE LEUK ESTERASE TRACE (NEGATIVE); URINE NITRITE NEGATIVE (NEGATIVE); URINE PROTEIN NEGATIVE (NEGATIVE); URINE RBC 353 /uL (0-23.9); URINE UROBILINOGEN 0.2 mg/dL (0.2-1.0); URINE WBC 51 /uL (0-25.8)
[2020-12-31 13:06] LABS: HCG,QUALITATIVE URINE NEGATIVE
== END 2020-12-31 16:00 | disposition home or self-care (01) ==
LOC: JER 10:08
PROC: 3E0233Z Introduction of Anti-inflammatory into Muscle, Percutaneous Approach (ICD-10-PCS; principal; 2020-12-31)
DX: N20.0 Calculus of kidney (principal); T83.32XA Displacement of intrauterine contraceptive device, initial encounter
CPT/HCPCS: 74176-TC; 81003; 84703; 87086; 99284-25; Q0162

== ENCOUNTER 2021-04-13 21:05 | Emergency (ER) | payer BC, OTHER ==
[2021-04-13 21:13] VITALS: BP 121/69; PULSE 82; TEMP 99.4; BMI 26.4
[2021-04-13] MEDS ORDERED: TETRACAINE 0.5% OPHTH SOLN 2 ML BOTTLE ONE (21:29)
[2021-04-13] MEDS ORDERED: FLUORESCEIN NA 1 EA STRIP ONE (21:30)
== END 2021-04-13 21:57 | disposition home or self-care (01) ==
LOC: FER 21:05
DX: S00.83XA Contusion of other part of head, initial encounter (principal); W22.8XXA Striking against or struck by other objects, initial encounter
CPT/HCPCS: 99283-25

== ENCOUNTER 2021-07-07 12:14 | Emergency (ER) | payer OTHER ==
[2021-07-07 12:25] VITALS: BP 133/75; PULSE 90; TEMP 98.2; BMI 24.1
[2021-07-07] MEDS ORDERED: ONDANSETRON 4 MG/2 ML VIAL IVPUSH ONE (12:50)
[2021-07-07] MEDS ORDERED: SODIUM CHLORIDE 0.9% 500 ML INFUS.BAG IV ONE ×2 (12:50→12:51)
[2021-07-07] MEDS ORDERED: ONDANSETRON 4 MG/2 ML VIAL ONE (13:00)
[2021-07-07 13:42] LABS: BASO % 0.2 % (0-2.0); EOS % 1.1 % (0-4.5); HEMATOCRIT 38.6 % (32.4-45.2); HEMOGLOBIN 13.1 GM/dL (10.7-15.3); LYMPH % 9.1 % (8-40); MCH 27.6 pg (25.7-33.7); MCHC 33.9 g/dl (32.0-36.0); MEAN CELL VOLUME 81.5 fl (80-96); MEAN PLT VOLUME 10.1 fl (7.5-11.1); MONO % 5.3 % (3.8-10.2); NEUT % 84.3 % (42.8-82.8); PLATELET COUNT 243 10^3/uL (134-434); RBC 4.74 M/mm3 (3.60-5.2); RDW 14.6 % (11.6-15.6)
[2021-07-07 14:00] LABS: ALBUMIN 4.6 g/dl (3.4-5.0); CALCIUM 9.7 mg/dL (8.5-10.1)
[2021-07-07 14:01] LABS: BLOOD UREA NITROGEN 9.3 mg/dL (7-18); EPI CELLS 7 /uL (0-25.1); HYALINE CASTS 1 /uL (0-3.1); URINE APPEARANCE CLEAR; URINE BACTERIA 50 /uL (0-1359); URINE BILIRUBIN NEGATIVE (NEGATIVE); URINE COLOR YELLOW; URINE GLUCOSE (UA) NEGATIVE (NEGATIVE); URINE KETONE NEGATIVE (NEGATIVE); URINE LEUK ESTERASE NEGATIVE (NEGATIVE); URINE NITRITE NEGATIVE (NEGATIVE); URINE PROTEIN NEGATIVE (NEGATIVE); URINE RBC 35 /uL (0-23.9); URINE UROBILINOGEN 0.2 mg/dL (0.2-1.0); URINE WBC 7 /uL (0-25.8)
[2021-07-07 14:03] LABS: CREATININE 0.6 mg/dL (0.55-1.3)
[2021-07-07 14:05] LABS: BILIRUBIN,TOTAL 0.4 mg/dL (0.2-1); TOT PROT 8.2 g/dl (6.4-8.2)
[2021-07-07 14:12] LABS: HCG,QUALITATIVE URINE Negative
== END 2021-07-07 18:09 | disposition home or self-care (01) ==
LOC: JER 12:14
PROC: 3E033GC Introduction of Other Therapeutic Substance into Peripheral Vein, Percutaneous Approach (ICD-10-PCS; principal; 2021-07-07)
DX: R10.9 Unspecified abdominal pain (principal)
CPT/HCPCS: 36415; 76775-TC; 80053; 81003; 83690; 84703; 85025; 87086; 99284-25

== ENCOUNTER 2021-09-28 04:33 | Day surgery (SDC) | payer OTHER ==
[2021-09-26 15:24] VITALS: BMI 23.6
[2021-09-28 09:51] VITALS: TEMP 96.9
[2021-09-28 10:30] VITALS: BP 116/62; PULSE 69
== END 2021-09-28 11:17 | disposition home or self-care (01) ==
LOC: JASU-ENDO 04:33
PROVIDERS: ATTEND Internal Medicine Gastroenterology
PROC: 0DB78ZX Excision of Stomach, Pylorus, Via Natural or Artificial Opening Endoscopic, Diagnostic (ICD-10-PCS; 2021-09-28)
PROC: 0DB98ZX Excision of Duodenum, Via Natural or Artificial Opening Endoscopic, Diagnostic (ICD-10-PCS; principal; 2021-09-28 09:45)
DX: R10.13 Epigastric pain (principal); R11.10 Vomiting, unspecified
CPT/HCPCS: 81025; 88305-TC; 88342-TC

== ENCOUNTER 2021-12-29 04:04 | Emergency (ER) | payer OTHER ==
[2021-12-29 04:18] VITALS: TEMP 98.5; BMI 23.6
[2021-12-29] MEDS ORDERED: ONDANSETRON 4 MG/2 ML VIAL IVPUSH ONE ×2 (04:35→04:43)
[2021-12-29] MEDS ORDERED: ACETAMINOPHEN 1000 MG/100 ML BAG IVPB ONE (04:35)
[2021-12-29] MEDS ORDERED: FAMOTIDINE 20 MG/50 ML IVPB 20 MG/50 ML MG IVPB ONE ×2 (04:35→04:46)
[2021-12-29] MEDS ORDERED: LACTATED RINGERS SOLUTION 1000 ML INFUS.BAG IV ONE (04:35)
[2021-12-29] MEDS ORDERED: ONDANSETRON 4 MG/2 ML VIAL ONE (04:46)
[2021-12-29] MEDS ORDERED: ACETAMINOPHEN INJECTION 100 ML IVPB ONE (04:46)
[2021-12-29] MEDS ORDERED: morphine CARPU-JECT 2 MG/1 ML DISP.SYRIN IVPUSH ONE (05:23)
[2021-12-29 06:54] LABS: BASO % 0.4 % (0-2.0); HEMATOCRIT 42.6 % (32.4-45.2); HEMOGLOBIN 14.1 GM/dL (10.7-15.3); LYMPH % 32.2 % (8-40); MCH 27.5 pg (25.7-33.7); MEAN CELL VOLUME 83.3 fl (80-96); MEAN PLT VOLUME 10.6 fl (7.5-11.1); MONO % 7.3 % (3.8-10.2); NEUT % 58.1 % (42.8-82.8); PLATELET COUNT 252 10^3/uL (134-434); RBC 5.12 M/mm3 (3.60-5.2); RDW 14.5 % (11.6-15.6); WHITE BLOOD COUNT 6.2 K/mm3 (4.0-10.0)
[2021-12-29 07:21] LABS: BLOOD UREA NITROGEN 11.4 mg/dL (7-18); CALCIUM 9.5 mg/dL (8.5-10.1)
[2021-12-29 07:22] LABS: ALBUMIN 4.4 g/dl (3.4-5.0)
[2021-12-29 07:24] LABS: CREATININE 0.6 mg/dL (0.55-1.3)
[2021-12-29 07:26] LABS: BILIRUBIN,TOTAL 0.6 mg/dL (0.2-1)
[2021-12-29 07:30] LABS: TOT PROT 8.2 g/dl (6.4-8.2)
[2021-12-29 08:47] LABS: URINE APPEARANCE CLEAR; URINE BILIRUBIN NEGATIVE (NEGATIVE); URINE COLOR YELLOW; URINE GLUCOSE (UA) NEGATIVE (NEGATIVE); URINE KETONE NEGATIVE (NEGATIVE); URINE LEUK ESTERASE NEGATIVE (NEGATIVE); URINE NITRITE NEGATIVE (NEGATIVE); URINE PROTEIN NEGATIVE (NEGATIVE)
[2021-12-29 09:46] VITALS: BP 115/74; PULSE 80; RESP 16
== END 2021-12-29 09:47 | disposition home or self-care (01) ==
LOC: JER 04:04
PROC: 3E0333Z Introduction of Anti-inflammatory into Peripheral Vein, Percutaneous Approach (ICD-10-PCS; principal; 2021-12-29)
PROC: 3E033GC Introduction of Other Therapeutic Substance into Peripheral Vein, Percutaneous Approach (ICD-10-PCS; 2021-12-29)
PROC: 3E033GC Introduction of Other Therapeutic Substance into Peripheral Vein, Percutaneous Approach (ICD-10-PCS; 2021-12-29)
PROC: 3E033GC Introduction of Other Therapeutic Substance into Peripheral Vein, Percutaneous Approach (ICD-10-PCS; 2021-12-29)
DX: R10.11 Right upper quadrant pain (principal); K80.20 Calculus of gallbladder without cholecystitis without obstruction
CPT/HCPCS: 36415; 80053; 81003; 83605; 83690; 84703; 85025; 87086; 99284-25

== ENCOUNTER 2022-03-20 05:26 | Day surgery (SDC) | payer OTHER ==
[2022-03-01 15:59] VITALS: BMI 23.8
[2022-03-20] MEDS ORDERED: BUPIVACAINE HCL/PF 0.5% (5MG/ML) 10 ML VIAL ONE (09:50)
[2022-03-20] MEDS ORDERED: oxyCODONE HCL 5 MG TABLET PO PRN ×2 (11:06→13:46)
[2022-03-20] MEDS ORDERED: ONDANSETRON 4 MG/2 ML VIAL IVPUSH PRN ×2 (11:06→13:46)
[2022-03-20] MEDS ORDERED: LACTATED RINGERS SOLUTION 1,000 ML IV SCH ×2 (11:15→13:46)
[2022-03-20] MEDS ORDERED: MIDAZOLAM HCL 2 MG/2 ML SINGLE DOSE VIAL ONE (11:36)
[2022-03-20] MEDS ORDERED: PROPOFOL 20 ML ONE (11:36)
[2022-03-20] MEDS ORDERED: FENTANYL CITRATE/PF 50 MCG/ML VIAL ONE ×5 (11:36→14:23)
[2022-03-20] MEDS ORDERED: LIDOCAINE HCL/PF 2% SDV 5ML VIAL ONE (11:49)
[2022-03-20] MEDS ORDERED: ONDANSETRON 4 MG/2 ML VIAL ONE (11:49)
[2022-03-20] MEDS ORDERED: DEXAMETHASONE SOD PHOSPHATE 4 MG/1 ML VIAL ONE (11:49)
[2022-03-20] MEDS ORDERED: ROCURONIUM BROMIDE 50 MG/5 ML SYRINGE ONE (11:51)
[2022-03-20] MEDS ORDERED: ceFAZolin 2 GRAM PREMIX BAG IVPB ONE (11:55)
[2022-03-20] MEDS ORDERED: ceFAZolin SODIUM 1 GM VIAL ONE (11:56)
[2022-03-20] MEDS ORDERED: BUPIVACAINE HCL/PF 0.5% (5MG/ML) 10 ML VIAL IJ ONE ×3 (12:14→13:03)
[2022-03-20] MEDS ORDERED: SEVOFLURANE 250 ML BTL ONE (12:43)
[2022-03-20] MEDS ORDERED: KETOROLAC TROMETHAMINE 30 MG/1 ML VIAL ONE (12:54)
[2022-03-20] MEDS ORDERED: NEOSTIGMINE METHYLSULFATE 0.5 MG/1 ML - 10 ML MDV ONE (13:02)
[2022-03-20] MEDS ORDERED: GLYCOPYRROLATE 0.2 MG/1 ML VIAL ONE (13:02)
[2022-03-20] MEDS ORDERED: IBUPROFEN 600 MG TABLET (FP) PO PRN (13:35)
[2022-03-20] MEDS ORDERED: ACETAMINOPHEN 1000 MG/100 ML BAG IVPB PRN (13:36)
[2022-03-20] MEDS ORDERED: ACETAMINOPHEN INJECTION 100 ML IVPB ONE (13:40)
[2022-03-20] MEDS ORDERED: ACETAMINOPHEN 1000 MG/100 ML BAG IVPB ONE (13:42)
[2022-03-20] MEDS ORDERED: oxyCODONE HCL 5 MG TABLET ONE (15:46)
[2022-03-20 15:53] VITALS: RESP 18
[2022-03-20 16:58] VITALS: BP 117/67; PULSE 82
[2022-03-20 17:19] VITALS: TEMP 98
[2022-03-21] MEDS ORDERED: PATIENT'S OWN MEDICATION (NON-FORMULARY) (Levonorgestrel-Ethin Estradiol [Vienva-28 Tablet PO SCH (10:00)
== END 2022-03-20 17:47 | disposition home or self-care (01) ==
LOC: JASU-SURG 05:26
PROVIDERS: ATTEND Surgery
PROC: 0FT44ZZ Resection of Gallbladder, Percutaneous Endoscopic Approach (ICD-10-PCS; principal; 2022-03-20 10:00)
DX: K80.10 Calculus of gallbladder with chronic cholecystitis without obstruction (principal)
CPT/HCPCS: 88304-TC; 94760

== ENCOUNTER 2023-01-10 21:15 | Emergency (ER) | payer OTHER ==
[2023-01-10 21:20] VITALS: BP 125/82; PULSE 84; RESP 18; TEMP 98.4; BMI 23.8
[2023-01-10] MEDS ORDERED: DEXAMETHASONE LIQUID 0.5 MG/5 ML PO ONE (21:44)
[2023-01-10] MEDS ORDERED: DEXAMETHASONE SOD PHOSPHATE 10 MG/1 ML VIAL IM ONE (21:53)
[2023-01-10] MEDS ORDERED: DEXAMETHASONE SOD PHOSPHATE 10 MG/1 ML VIAL ONE (22:10)
[2023-01-10] MEDS ORDERED: ALBUTEROL SO4 2.5/IPRATROPIUM 0.5 INH SOL 3 ML VIAL.NEB. NEB ONE ×2 (22:22→22:28)
== END 2023-01-10 22:57 | disposition home or self-care (01) ==
LOC: JERFT 21:15
PROC: 3E0F7GC Introduction of Other Therapeutic Substance into Respiratory Tract, Via Natural or Artificial Opening (ICD-10-PCS; principal; 2023-01-10)
PROC: 3E023GC Introduction of Other Therapeutic Substance into Muscle, Percutaneous Approach (ICD-10-PCS; 2023-01-10)
DX: R05.9 Cough, unspecified (principal); J02.9 Acute pharyngitis, unspecified; R09.89 Other specified symptoms and signs involving the circulatory and respiratory systems; R50.9 Fever, unspecified; R06.02 Shortness of breath; J06.9 Acute upper respiratory infection, unspecified; J34.89 Other specified disorders of nose and nasal sinuses; Z20.822 Contact with and (suspected) exposure to COVID-19
CPT/HCPCS: 0241U-QW; 71046-TC-FY; 99284-25; J1100

== ENCOUNTER 2023-02-06 10:31 | Emergency (ER) | payer OTHER ==
[2023-02-06 10:41] VITALS: BP 111/68; PULSE 110; RESP 18; TEMP 98.3; BMI 24.1
[2023-02-06] MEDS ORDERED: SODIUM CHLORIDE 0.9% 500 ML INFUS.BAG IV ONE (10:53)
[2023-02-06] MEDS ORDERED: ONDANSETRON 4 MG/2 ML VIAL IVPUSH ONE (10:53)
[2023-02-06] MEDS ORDERED: ACETAMINOPHEN 1000 MG/100 ML BAG IVPB ONE (10:53)
[2023-02-06] MEDS ORDERED: ONDANSETRON 4 MG/2 ML VIAL ONE (11:23)
[2023-02-06] MEDS ORDERED: ACETAMINOPHEN INJECTION 100 ML IVPB ONE (11:23)
[2023-02-06 12:01] LABS: BASO % 0.5 % (0-2.0); EOS % 0.1 % (0-4.5); HEMATOCRIT 39.3 % (32.4-45.2); HEMOGLOBIN 13.2 GM/dL (10.7-15.3); LYMPH % 11.7 % (8-40); MCH 27.3 pg (25.7-33.7); MCHC 33.6 g/dl (32.0-36.0); MEAN CELL VOLUME 81.3 fl (80-96); MEAN PLT VOLUME 9.7 fl (7.5-11.1); MONO % 2.8 % (3.8-10.2); NEUT % 84.9 % (42.8-82.8); PLATELET COUNT 336 10^3/uL (134-434); RBC 4.84 M/mm3 (3.60-5.2); RDW 14.5 % (11.6-15.6); WHITE BLOOD COUNT 11.9 K/mm3 (4.0-10.0)
[2023-02-06 12:02] LABS: PH,URINE 8.5 (5.0-8.0); URINE APPEARANCE CLEAR; URINE BILIRUBIN NEGATIVE (NEGATIVE); URINE COLOR YELLOW; URINE GLUCOSE (UA) NEGATIVE (NEGATIVE); URINE KETONE NEGATIVE (NEGATIVE); URINE LEUK ESTERASE NEGATIVE (NEGATIVE); URINE NITRITE NEGATIVE (NEGATIVE); URINE PROTEIN TRACE (NEGATIVE)
[2023-02-06 12:08] LABS: INR 1.11 (0.83-1.09); PROTHROMBIN TIME (PATIENT) 12.9 SEC (9.7-13.0)
[2023-02-06 12:13] LABS: POTASSIUM 5.2 mmol/L (3.5-5.1)
[2023-02-06 12:15] LABS: ALBUMIN 3.8 g/dl (3.4-5.0); CALCIUM 9.6 mg/dL (8.5-10.1)
[2023-02-06 12:19] LABS: CREATININE 0.6 mg/dL (0.55-1.3)
[2023-02-06 12:20] LABS: BILIRUBIN,TOTAL 0.6 mg/dL (0.2-1); TOT PROT 8.3 g/dl (6.4-8.2)
[2023-02-06 12:56] LABS: ERYTHROCYTE SEDIMENTATION RATE 38 mm/hr (0-20)
== END 2023-02-06 19:16 | disposition home or self-care (01) ==
LOC: JER 10:31
PROC: 3E033NZ Introduction of Analgesics, Hypnotics, Sedatives into Peripheral Vein, Percutaneous Approach (ICD-10-PCS; principal; 2023-02-06)
PROC: 3E033GC Introduction of Other Therapeutic Substance into Peripheral Vein, Percutaneous Approach (ICD-10-PCS; 2023-02-06)
DX: R10.31 Right lower quadrant pain (principal); R11.2 Nausea with vomiting, unspecified; R42 Dizziness and giddiness; R10.2 Pelvic and perineal pain
CPT/HCPCS: 36415; 71046-TC-FY; 74176-TC; 74177-TC; 76856-TC; 80053; 81003; 84703; 85025; 85610; 85651; 86140; 87086; 93005; 93010; 99285-25; Q9967